=== PATIENT | male | born 1975 | race Caucasian/White ===

== ENCOUNTER 2018-10-22 11:14 | Inpatient (IN) | payer MEDICARE ==
[~2018-10-22] VITALS: Ht 177.8 cm; Wt 72.0 kg
--- NOTE | ~2018-10-22 | OP ---
PATIENT NAME: ALAN ESPINAL MEDICAL RECORD: [id number] :73 LOCATION:D. D.2102 ADMISSION DATE:10/22/18 SURGEON: REGINALDO PORTILLO MD DATE OF OPERATION: 10/23/2018 The patient is an inpatient. PREOPERATIVE DIAGNOSES: End-stage renal disease with dependence on hemodialysis and thrombosis of left arm AV graft. POSTOPERATIVE DIAGNOSES: End-stage renal disease with dependence on hemodialysis and thrombosis of left arm AV graft. REFERRING PHYSICIAN: Dr. Lopez and Dr. Quijano. OPERATION PERFORMED: Insertion of a right internal jugular 19-cm HemoSplit dialysis catheter done with ultrasound as well as fluoroscopic guidance. SURGEON: Reginaldo Portillo MD ANESTHESIA: General with LMA per BLUING OVEN TENDER. PREOPERATIVE NOTE: This unfortunate gentleman has a left arm brachiobasilic AV fistula, which is thrombosed frequently of late and had thrombosed again. He was admitted to the hospital and I was consulted to place a central catheter and as soon as possible plan to do an open revision of the left arm AV graft. I discussed with Dr. Quijano or the potential for a graft revision with an anastomosis more proximally on the axillary vein, which already contains an endovascular stent graft. I discussed with Dr. Lopez also this morning, the need to go ahead and place a catheter. There was not time in the operating schedule today to do a graft revision, but that we would plan to do it soon. DESCRIPTION OF PROCEDURE: Under general anesthesia, the patient was prepped and draped in sterile manner. He was examined with Duplex ultrasound and the right internal jugular vein found to be patent and fully compressible and normal in every sonographic respect and incision was made at the base of the neck and through that with ultrasound guidance, a micropuncture needle and wire were inserted and then a micropuncture catheter, a larger guidewire and then serially larger dilators and finally a dilator peel-away sheath. A 19-cm HemoSplit was then brought through an infraclavicular stab wound and subQ tunnel and inserted through the peel-away sheath as it was removed. The tips of the catheter were positioned in the right atrium. When accessed and aspirated, both lumens returned blood easily. They were then flushed with saline and lastly heparin locked, clamped and capped. The cervical incision was closed with a single interrupted inverted 3-0 Vicryl suture and Dermabond glue and the catheter was sutured to the skin near the entry site with 2-0 Prolene. Additional sterile dressings were applied and the patient then awakened and taken to the recovery room. Blood loss during the operation was perhaps 15 or 20 cc unreplaced. All sponges, instruments and needles were accounted for. No drain used and no surgical specimen submitted for histopathology. PLAN: The patient will have dialysis either tonight or in the morning and then go home and he will be returning very soon, probably next week for his graft OPERATIVE REPORT [id number] ALAN ESPINAL revision surgery. TRANSINT:[id number] Voice Confirmation ID: [id number] DOCUMENT ID: [id number] REGINALDO PORTILLO MD at 1150 CC: RONEL QUIJANO and JOHN LOPEZ MD [id number] DICTATION DATE: 10/23/181940 DOPE HOUSE OPERATOR HELPER: 10/23/182032 DIS IN 10/24/18 [facility] [address] [place] [address]
--- NOTE | ~2018-10-22 | HP ---
PATIENT: ALAN ESPINAL MEDICAL RECORD: [id number] ACCOUNT: [id number] LOCATION:[address] : [birth year] ADMISSION DATE: 10/22/18 PCP: JOHN CARSON MD HISTORY AND PHYSICAL EXAMINATION REASON FOR ADMISSION: 1. Clotted dialysis access. 2. The patient has missed dialysis. HISTORY: This is a 43-year-old male with past medical history of hypertension, congestive heart failure, COPD, diabetes, and end-stage renal disease, on dialysis on Mondays, Wednesdays, and Fridays. He recently has had multiple thrombectomies. Dr. Romero had reviewed his fistulogram films with Dr. Rutledge in regards to possibly placing a left upper brachial axillary AV graft in this 43-year-old gentleman. REVIEW OF SYSTEMS: Related to dialysis. All other review of systems are negative. PAST MEDICAL HISTORY: 1. End-stage renal disease, on dialysis on Mondays, Wednesdays, and Fridays. 2. COPD. 3. Depression. 4. Diabetes, insulin dependent. 5. Chronic headaches. 6. Hypertension. 7. Congestive heart failure. 8. Hyperlipidemia. PAST SURGICAL HISTORY: Lap gregory, appendectomy, multiple vascular access procedures and tunnel catheter placement, and multiple access procedures related to his fistula. ALLERGIES: NKDA. MEDICATIONS: Medication list was reviewed and had Coreg, hydralazine, lisinopril, and Lasix as well as DuoNebs. He had been on Lipitor in the past. SOCIAL HISTORY: He is single. Former smoker. Chews tobacco at this time, but quit smoking in 2014. No illicit drugs. Fair compliance at best with dialysis. FAMILY HISTORY: Father had heart disease. Mother had heart disease and hypertension. PHYSICAL EXAMINATION: VITAL SIGNS: 170/100, 72 heart rate, and 18 respiratory rate. GENERAL: He is alert and oriented times 3. HEENT: Normocephalic. Clotted graft. HEENT is grossly clear. NECK: No thyromegaly. CHEST: Regular rhythm. LUNGS: Decreased breath sounds. ABDOMEN: Nontender in all 4 quadrants with scars as noted. LABORATORY DATA: BMP, CBC, and INR. HISTORY AND PHYSICAL [id number] ALAN ESPINAL ASSESSMENT AND PLAN: 1. End-stage renal disease. 2. Clotted dialysis access, reason for admission. 3. Anemia of CKD. 4. Hyperphosphatemia. 5. Insulin-dependent diabetes, on insulin therapy. 6. Hypertension, on multiple medications. 7. Edema. 8. Congestive heart failure. PLAN: 1. Please see orders. 2. Consult Dr. Rutledge. 3. Lab. 4. Possible catheter placement versus thrombectomy and/or both. TRANSINT:[id number] Voice Confirmation ID: [id number] DOCUMENT ID: [id number] VAZQUEZ COWART MD at 0630 CC: [id number] DICTATION DATE: 10/22/18 1200 VIDEO GAME SCRIPT WRITER: 10/22/18 1253 ADM IN [facility] [address] [place] [id number]
--- NOTE | ~2018-10-22 | MORECARE ---
CASE MANAGEMENT DISCHARGE SUMMARY PATIENT: ALAN ESPINAL UNIT: [id number] ADM DATE: 10/22/18 AGE: 43 : [birth year] SEX: M ROOM/BED: D.2102 AUTHOR: GENE,DOC PHYSICIAN: REFERRING PHYSICIAN: JOHN CARSON MD DATE OF SERVICE: 10/24/18 Discharge Plan Patient Name: ALAN ESPINAL Facility: [facility]:[place] : 1975 Planned Disposition: Home Anticipated Discharge Date: 10/24/18 Discharge Date: 10/24/2018 Expected LOS: 2 Initial Reviewer: [email or web address] Initial Review Date: 10/24/2018 Generated: 10/24/18 5:16 pm Comments DCP- Discharge Planning Updated by [email or web address]: Willian Lazar on 10/24/18 3:[address] Patient Name: ALAN ESPINAL Admission Status: ER Accout number: [id number] Admission Date: 10-22-2018 : 1975 Admission Diagnosis:THROMBOSIS DUE TO VASCULAR PROSTH DEV/GRFT, INIT Attending: JHON CARSON Current LOS: 2 Anticipated DC Date: 10-24-2018 Planned Disposition: Home Primary Insurance: MEDICARE A & B Discharge Planning Comments: CM MET WITH PT AND MOTHER IN ROOM TO DISCUSS DISCHARGE PLANNING AND NEEDS. ALAN ESPINAL provided verbal consent to discuss current and ongoing needs with/in the presence of: MOTHER, JASMIN BRADEN. PT REPORTS LIVING AT HOME INDEPENDENTLY WITH HIS MOTHER. PT HAS GLUCOMETER AND PULSE OXIMETER WITH NO MEDICAL EQUIPMENT PROVIDER PRERFERENCE. PT HAS DIALYSIS IN [facility], HIS MOTHER OR PT DRIVES. PT HAS NO OUTSIDE SERVICES ASSISTING IN THE HOME. CM DISCUSSED AVAILABILITY OF HOME HEALTH, REHAB SERVICES AND MEDICAL EQUIPMENT. PT DENIES DISCHARGE NEEDS, REPORTS HIS MOTHER IS HERE TO WILL PICK HIM UP FOR DISCHARGE HOME. IMPORTANT MESSAGE FROM MEDICARE PROVIDED AND EXPLAINED. Drafter (Cad) Electronic: Willian Lazar DCPIA - Discharge Planning Initial Assessment Updated by [email or web address]: Willian Lazar on 10/24/18 4:07 pm * Is the patient Alert and Oriented? Yes * How many steps to enter\exit or inside your home? * PCP [facility] IN [facility] * [facility] [place] * Preadmission Environment Home with Family * ADLs Independent * Equipment Glucometer Other * Other Equipment PULSE OXIMETER NO MEDICAL EQUIPMENT PROVIDER PREFERENCE * List name and contact numbers for known caregivers / representatives who currently or will assist patient after discharge: JOSUE ZURITA, * Verbal permission to speak to the caregivers and representatives has been obtained from the patient. Yes * Community resources currently utilized Other * Please name any agencies selected above. OUTPATIENT DIALYSIS, MWF, [place] * Additional services required to return to the preadmission environment? No * Can the patient safely return to the preadmission environment? Yes * Has this patient been hospitalized within the prior 30 days at any hospital? Yes Coverage Notice Reviewer: [email or web address] Rama Lazar Notice Issued Date-Time: 10/24/2018 14:10 Notice Type: IM Discharge Notice Notice Delivered To: Patient Relationship to Patient: Port Engineer Name: Delivery Method: HAND - Hand Delivered Leticia Days: Prior Verbal Notification: Recipient Understood Notice: Yes Recipient Signature: Yes Med Rec Note Co-signed by Attending: Coverage Notice Comment: Last DP export: 10/24/18 3:07 Patient Name: ALAN ESPINAL Page [phone] at 1616 All edits/amendments must be made on the electronic document DICTATION DATE: 10/24/181614 RESEARCH AND DEVELOPMENT TECHNICIAN: JORGE LUIS 10/24/18 161 RPT#: [id number] DC DATE:10/24/18 STATUS: DIS IN [facility] [address] [place] [address] END OF REPORT
--- NOTE | ~2018-10-22 | MORECARE ---
CASE MANAGEMENT DISCHARGE SUMMARY PATIENT: ALAN ESPINAL UNIT: [id number] ADM DATE: 10/22/18 AGE: 43 : 73 SEX: M ROOM/BED: D.2102 AUTHOR: [place] PHYSICIAN: REFERRING PHYSICIAN: JOHN CARSON MD DATE OF SERVICE: 10/24/18 Discharge Plan Patient Name: ALAN ESPINAL Facility: [facility]:[place] : 1975 Planned Disposition: Home Anticipated Discharge Date: 10/24/18 Discharge Date: 10/24/2018 Expected LOS: 2 Initial Reviewer: [email or web address] Initial Review Date: 10/24/2018 Generated: 10/24/18 5:07 pm Patient Name: ALAN ESPINAL Page 10340 at 1607 All edits/amendments must be made on the electronic document DICTATION DATE: 10/24/18 1606 WHEEL PRESS CLERK: JORGE LUIS 10/24/18 1606 RPT#: [id number] DC DATE:10/24/18 STATUS: DIS IN [facility] [address] [place] [address] END OF REPORT
[~2018-10-22 11:14] MED LIST: COMPAZINE10 MG PO; CYCLOBENZAPRINE10 MG PO; FAMOTIDINE10 MG; HUMALOG 30100 UNITS/ SQ; LANTUS SOL100 UNIT/1 SC; LIPITOR40 MG PO; LOPRESSOR25 MG; METOPROLOL TART50 MG PO; NEURONTIN 300300 MG PO; NORVASC5 MG PO
[2018-10-22] MEDS ORDERED: REQUIP1 MG PO (11:44)
[2018-10-22] MEDS ORDERED: PLAVIX75 MG PO (11:45)
[2018-10-22] MEDS ORDERED: NORMODYNE / TR300 MG PO (11:45)
[2018-10-22] MEDS ORDERED: BAYER CHEWABLE81 MG PO (11:45)
[2018-10-22] MEDS ORDERED: ZESTRIL40 MG PO (11:45)
[2018-10-22] MEDS ORDERED: RESTORIL7.5 MG PO (11:46)
[2018-10-22 12:03] LABS: BASOPHILS 0.6 % (0-2); EOSINOPHILS 0.3 % (0-7); HEMATOCRIT 38.9 % (42.0-54.0); HEMOGLOBIN 13.1 g/dL (13.5-17.5); IMMATURE GRANULOCYTES 0.6 % (0-5); LYMPHOCYTES 5.4 % (15-50); MCH 29.2 pg (26.0-34.0); MCHC 33.7 g/dL (31.0-37.0); MCV 86.6 fL (80.0-100.0); MEAN PLATELET VOLUME 9.2 fL (7.4-10.4); MONOCYTES 3.5 % (2-11); NEUTROPHILS 89.6 % (40-80); PLATELET COUNT 502 10x3/uL (130-400); RBC 4.49 10x6/uL (4.20-6.10); RDW 15.6 % (11.5-14.5); WBC 13.3 10x3/uL (4.8-10.8)
[2018-10-22 12:18] LABS: ALBUMIN 3.7 g/dL (3.4-5.0); ANION GAP 36.1 mmol/L (8-16); BILIRUBIN - TOTAL 0.52 mg/dL (0.2-1.3); CALCIUM 8.2 mg/dL (8.5-10.1); CREATININE - SERUM 13.3 mg/dL (0.6-1.3); POTASSIUM - SERUM 5.1 mmol/L (3.5-5.1); PROTEIN - SERUM 8.8 g/dL (6.4-8.2)
[2018-10-22] MEDS ORDERED: NOVOLOG (12:58)
[2018-10-22] MEDS ORDERED: BENTYL 20 MG TA20 MG PO (12:59)
[2018-10-22] MEDS ORDERED: RENVELA800 MG PO (12:59)
[2018-10-22] MEDS ORDERED: ATARAX 25 MG TA25 MG PO (13:00)
[2018-10-22] MEDS ORDERED: OMEPRAZOLE20 M1 PO (13:01)
[2018-10-22] MEDS ORDERED: NORCO 7.5/325 T1 TA1 PO (13:02)
[2018-10-22] MEDS ORDERED: LONITEN10 MG PO (13:03)
[2018-10-22] MEDS ORDERED: NOVOLOG SQ (13:05)
[2018-10-22] MEDS ORDERED: NOVOLOG100 UNIT/1 SQ (13:43)
[2018-10-22 14:04] VITALS: BP 239/139; BMI 21.2
[2018-10-22 16:43] VITALS: BP 226/123
[2018-10-22 20:57] VITALS: BP 203/107
[2018-10-23] VITALS (7 sets, daily range): BP systolic 107–160; BP diastolic 47–90; Ht 177.8 cm; Wt 72.0 kg
[2018-10-23 10:21] LABS: ANION GAP 35.3 mmol/L (8-16); CALCIUM 7.2 mg/dL (8.5-10.1); CARBON DIOXIDE 11.7 mmol/L (21.0-32.0); CREATININE - SERUM 14.7 mg/dL (0.6-1.3)
[2018-10-23 10:29] LABS: INR 1.34 (0.85-1.17)
[2018-10-24] VITALS: BP 122/65
[2018-10-24 05:17] VITALS: BP 98/57
[2018-10-24 08:11] VITALS: BP 141/71
== END 2018-10-24 14:37 | disposition home or self-care (01) | DRG 286 ==
LOC: D.ER 11:14 → EDSTATUS 12:17 → D.M2 12:23
PROVIDERS: Family Medicine; Surgery
PROC: B2141ZZ Fluoroscopy of Right Heart using Low Osmolar Contrast (ICD-10-PCS; 2018-10-23)
PROC: 02H633Z Insertion of Infusion Device into Right Atrium, Percutaneous Approach (ICD-10-PCS; 2018-10-23)
PROC: 0JH63XZ Insertion of Tunneled Vascular Access Device into Chest Subcutaneous Tissue and Fascia, Percutaneous Approach (ICD-10-PCS; principal; 2018-10-23 15:30)
DX: T82.868A Thrombosis due to vascular prosthetic devices, implants and grafts, initial encounter (principal); N18.6 End stage renal disease; I13.2 Hypertensive heart and chronic kidney disease with heart failure and with stage 5 chronic kidney disease, or end stage renal disease; Y83.8 Other surgical procedures as the cause of abnormal reaction of the patient, or of later complication, without mention of misadventure at the time of the procedure; E11.22 Type 2 diabetes mellitus with diabetic chronic kidney disease; I50.9 Heart failure, unspecified; Z99.2 Dependence on renal dialysis; Z79.4 Long term (current) use of insulin; J44.9 Chronic obstructive pulmonary disease, unspecified; E78.5 Hyperlipidemia, unspecified; D63.1 Anemia in chronic kidney disease; E83.39 Other disorders of phosphorus metabolism; F32.9 Major depressive disorder, single episode, unspecified; Z87.891 Personal history of nicotine dependence; E87.5 Hyperkalemia

== ENCOUNTER 2018-12-25 05:42 | Day surgery (SDC) | payer MEDICARE ==
[~2018-12-25] VITALS: Ht 177.8 cm; Wt 60.9 kg
[~2018-12-25 05:42] MED LIST changes: +ATARAX 25 MG TA25 MG PO; +BAYER CHEWABLE81 MG PO; +BENTYL 20 MG TA20 MG PO; +LONITEN10 MG PO; +NORCO 7.5/325 T1 TA1 PO; +NORMODYNE / TR300 MG PO; +NOVOLOG; +NOVOLOG SQ; +NOVOLOG100 UNIT/1 SQ; +OMEPRAZOLE20 M1 PO; +PLAVIX75 MG PO; +RENVELA800 MG PO; +REQUIP1 MG PO; +RESTORIL7.5 MG PO; +ZESTRIL40 MG PO
[2018-12-25 06:04] LABS: BASOPHILS 0.5 % (0-2); EOSINOPHILS 2.5 % (0-7); HEMATOCRIT 37.3 % (42.0-54.0); HEMOGLOBIN 12.2 g/dL (13.5-17.5); IMMATURE GRANULOCYTES 0.4 % (0-5); LYMPHOCYTES 16.2 % (15-50); MCH 28.1 pg (26.0-34.0); MCHC 32.7 g/dL (31.0-37.0); MCV 85.9 fL (80.0-100.0); MEAN PLATELET VOLUME 8.6 fL (7.4-10.4); NEUTROPHILS 70.4 % (40-80); RBC 4.34 10x6/uL (4.20-6.10); RDW 15.1 % (11.5-14.5); WBC 7.5 10x3/uL (4.8-10.8)
[2018-12-25 06:13] LABS: APTT 32.6 SECONDS (22.8-39.4); INR 1.23 (0.85-1.17)
[2018-12-25 06:14] LABS: ANION GAP 17.3 mmol/L (8-16); CALCIUM 8.2 mg/dL (8.5-10.1); CARBON DIOXIDE 30.4 mmol/L (21.0-32.0); CREATININE - SERUM 5.9 mg/dL (0.6-1.3); POTASSIUM - SERUM 3.7 mmol/L (3.5-5.1)
[2018-12-25 06:17] LABS: PLATELET COUNT 364 10x3/uL (130-400)
[2018-12-25 07:24] VITALS: Ht 177.8 cm; Wt 60.9 kg
--- NOTE | 2018-12-25 07:47 | NUR ---
0730 PT BECAME VERY DROWSY AND DIAPHORTIC, IV STARTED AND BLOOD SUGAR CHECKED, CBG 29, 50ML OF D50 GIVEN PER ANESTHESIA ORDERS, STAT BLOOD SUGAR DRAWN BY LAB
--- NOTE | 2018-12-25 07:55 | NUR ---
0750 BLOOD SUGAR RECHECKED 200,
--- NOTE | 2018-12-25 08:05 | NUR ---
[address] FOR THORACENTESIS, REPORT CALLED TO HIMA HARRISRN REGUARDING BLOOD SUGAR
--- NOTE | 2018-12-25 09:00 | NUR ---
PT ARRIVED TO [facility] FROM [facility]. DENIES PAIN/NEEDS AT THIS TIME. 2 SIDE RAILS UP. WILL RECHECK FSBS
--- NOTE | 2018-12-25 09:25 | NUR ---
FSBS 70
--- NOTE | 2018-12-25 09:45 | NUR ---
FSBS 65. CALLED DR. SERNA AND HE ORDERED 1/2 AMP D50 IV. ADMINISTERED. WILL RECHECK BS
--- NOTE | 2018-12-25 10:45 | NUR ---
FSBS 92. PT DENIES NEEDS/PAIN AT THIS TIME.
[2018-12-25] MEDS ORDERED: HYDROCODON-ACE1 EAC7 PO (16:21)
--- NOTE | 2018-12-25 18:01 | NUR ---
DC INSTRUCTIONS GIVEN TO PT. STATES UNDERSTANDING. DC'D IV CATH FULLY INTACT.
--- NOTE | 2018-12-25 18:10 | NUR ---
PT LEFT UNIT VIA WC AT 1805
== END 2018-12-25 18:05 | disposition home or self-care (01) ==
LOC: D.OPS 05:42
PROVIDERS: Surgery
DX: T82.868A Thrombosis due to vascular prosthetic devices, implants and grafts, initial encounter (principal); Y83.8 Other surgical procedures as the cause of abnormal reaction of the patient, or of later complication, without mention of misadventure at the time of the procedure; E11.22 Type 2 diabetes mellitus with diabetic chronic kidney disease; I12.0 Hypertensive chronic kidney disease with stage 5 chronic kidney disease or end stage renal disease; N18.6 End stage renal disease; Z99.2 Dependence on renal dialysis; J90 Pleural effusion, not elsewhere classified

== ENCOUNTER → 2019-02-21 14:02 | Outpatient (CLI) | payer MEDICARE ==
[2018-12-25 07:24] VITALS: BMI 19.2
[~2019-02-21 14:02] MED LIST changes: +HYDROCODON-ACE1 EAC7 PO; +LEVEMIR FL100 UNIT/1 SC; +SENSIPAR30 MG PO
== END | disposition home or self-care (01) ==
LOC: D.RAD 14:02
PROVIDERS: ATTEND Thoracic Surgery (Cardiothoracic Vascular Surgery)
DX: J90 Pleural effusion, not elsewhere classified (principal)

== ENCOUNTER 2019-03-19 12:40 | Outpatient (CLI) | payer MEDICARE ==
[~2019-03-19] VITALS: Ht 177.8 cm; Wt 63.2 kg
[~2019-03-19 12:40] MED LIST changes: -LEVEMIR FL100 UNIT/1 SC; -SENSIPAR30 MG PO
[2019-03-19] MEDS ORDERED: LEVEMIR FL100 UNIT/1 SC (13:46)
[2019-03-19] MEDS ORDERED: SENSIPAR30 MG PO (13:47)
[2019-03-19 14:00] VITALS: Ht 177.8 cm; Wt 63.2 kg
[2019-03-19 15:13] LABS: PROTEIN - BODY FLUID 2.8 G/DL
--- NOTE | 2019-03-19 15:31 | NUR ---
DC INSTRUCTIONS GIVEN TO PT/FAMILY. STATE UNDERSTANDING. PT LEFT UNIT AMBULATING AT 1530
[2019-03-19 20:09] LABS: MACROPHAGES BF 42 %; MESOTHELIALS BF 6 %; NEUT - BF 3 %
--- NOTE | 2019-03-20 16:47 | OP ---
PATIENT NAME: ALAN ESPINAL MEDICAL RECORD: [id number] :73 LOCATION:KRIS ADMISSION DATE: SURGEON: UKRT RAPP MD DATE OF OPERATION: 03/19/2019 SURGEON: Kurt Rapp MD LAMINATION OPERATOR: None. ANESTHESIA: Local 5 cc of 1% Xylocaine. PROCEDURE PERFORMED: Right ultrasound-guided thoracentesis. INDICATION: Right pleural effusion. COMPLICATIONS: None. SPECIMENS: Fluid for cell count, chemistry, cytology and culture. PROCEDURE IN DETAIL: With the patient seated upright and the same day surgery center and with a heart rate, blood pressure, and pulse oximetry monitored, the ultrasound imaging of the right chest was performed with a window for aspiration obtained. The right posterior chest was sterilely prepped and draped. A 1% Xylocaine used for local anesthetic. A 2-mm skin incision was made. Catheter was inserted into the pleural cavity without complication. A total of 1.5 cc of fluid was removed without difficulty. The ultrasound revealed complete drainage. There were no apparent complications. The patient was sent for a chest x-ray and discharged after 1 hour. TRANSINT:[id number] Voice Confirmation ID: [id number] DOCUMENT ID: [id number] KURT RAPP MD at 1647 CC: MAMTA LOPEZ MD [id number] DICTATION DATE: 03/20/19 0754 TOP TRIMMER: 03/20/19 0828 DEP CLI 03/19/19 [place] [id number]
== END 2019-03-19 15:30 | disposition home or self-care (01) ==
LOC: D.OPS 12:40
PROVIDERS: ATTEND Thoracic Surgery (Cardiothoracic Vascular Surgery)
DX: J90 Pleural effusion, not elsewhere classified (principal); Z01.812 Encounter for preprocedural laboratory examination

== ENCOUNTER 2019-04-29 11:00 | Inpatient (IN) | payer MEDICARE ==
[2019-04-29] VITALS (8 sets, daily range): BP systolic 132–147; BP diastolic 74–84; BMI 19.1
[~2019-04-29 11:00] MED LIST changes: +LEVEMIR FL100 UNIT/1 SC; +SENSIPAR30 MG PO
--- NOTE | 2019-04-29 19:20 | NUR ---
PT RECEIVED WITH EYES CLOSED AND CHEST RISING. EASILY AWOKEN TO VERBAL STIMULI. NO COMPLAINT OF PAIN. BP >160 RECEIVING CARDENE 15MG/HR. NO S/S OF DISTRESS. WILL CONTINUE TO OBSERVE.
[2019-04-29 19:44] LABS: HEMATOCRIT 45.5 % (42.0-54.0); HEMOGLOBIN 15.1 g/dL (13.5-17.5); MCH 28.2 pg (26.0-34.0); MCHC 33.2 g/dL (31.0-37.0); MCV 84.9 fL (80.0-100.0); MEAN PLATELET VOLUME 10.1 fL (7.4-10.4); RBC 5.36 10x6/uL (4.20-6.10); WBC 9.6 10x3/uL (4.8-10.8)
--- NOTE | 2019-04-29 19:50 | NUR ---
PT RECEIVED TO UNIT AMBULATING WITH STEADY GAIT AT 1915. PT REMOVED OWN CLOTHES AND PUT ON GOWN. PLACED ON MONITOR, VSS. DENIES PAIN. NO NEEDS MADE KNOWN. CALL LIGHT IN REACH. WILL CONTINUE TO OBSERVE.
[2019-04-29 19:53] LABS: APTT 29.2 SECONDS (22.8-39.4); INR 1.23 (0.85-1.17)
[2019-04-29 20:00] LABS: ALBUMIN 2.9 g/dL (3.4-5.0); ANION GAP 16.6 mmol/L (8-16); BILIRUBIN - TOTAL 0.54 mg/dL (0.2-1.3); CALCIUM 7.6 mg/dL (8.5-10.1); CARBON DIOXIDE 28.3 mmol/L (21.0-32.0); CREATININE - SERUM 4.7 mg/dL (0.6-1.3); PROTEIN - SERUM 6.9 g/dL (6.4-8.2)
[2019-04-29 20:04] LABS: POTASSIUM - SERUM 2.9 mmol/L (3.5-5.1)
--- NOTE | 2019-04-29 21:00 | NUR ---
PT WITH POTASSIUM OF 2.9. DR QUIJANO PAGED AND RETURNED CALL. REPORT GIVEN AND RECEIVED ORDERS FOR 20MEQ K-DUR ONE TIME AND RECHECK LEVEL IN AM. POTASSIUM GIVEN AND PT TOLERATED WELL. WILL CONTINUE TO OBSERVE. CALL LIGHT IN REACH.
--- NOTE | 2019-04-29 23:20 | NUR ---
REASSESSMENT COMPLETED, SEE FLOW SHEET. WILL CONTINUE TO OBSERVE.
[2019-04-30] VITALS (23 sets, daily range): BP systolic 123–183; BP diastolic 63–100; BMI 19.1
--- NOTE | 2019-04-30 01:05 | NUR ---
PT RESTING WITH EYES CLOSED AND CHEST RISING. VSS. NO S/S OF DISTRESS. CALL LIGHT IN REACH. WILL CONTINUE TO OBSERVE.
--- NOTE | 2019-04-30 04:04 | NUR ---
PT HAS BEEN CLIPPED CHEST AND ABDOMEN, RIGHT SIDE AND AXILLA, AND BACK. CHG BATH GIVEN. NEW LINENS PROVIDED. IV TO RIGHT FOREARM SALINE LOCKED, WITH 3 ATTEMTS BY 2 NURSES. PT TOLERATED WELL. REASSESSMENT COMPLETED, SEE FLOW SHEET. WILL CONTINUE TO OBSERVE. CALL LIGHT IN REACH.
--- NOTE | 2019-04-30 06:10 | NUR ---
SPOKE WITH DR SERNA ON PHONE FOR CLEARIFICATION ON PREOP MEDICATIONS. GIVE NITRO PASTE TO RIGHT RADIAL ONLY DUE TO LEFT ARM RESERVE FOR DIALYSIS GRAFT AND HOLD PO MEDICATIONS DUE TO BEING ON DIALYSIS.
--- NOTE | 2019-04-30 07:14 | NUR ---
PT OUT TO SURGERY WITH DR SERNA AND SURGERY STAFF.
--- NOTE | 2019-04-30 10:25 | NUR ---
PT ARRIVED IN THE UNIT. PT HOOKED TO ICU MONITORS. PT AWAKE AND ALERT BUT CONFUSED FROM THE ANESTESIA. WILL PROVIDED 1:1 CARE. NSR ON THE MONITORS. RIGHT SUBVAIAN CVL NOTED. SEE IV FLOW SHEET FOR GTTS. PT HTN. PREOP BP WAS 160-200. DR JAMES STATED HE IS OK IF THE PT SBP >140 BUT TO KEEP IT BELOW 160. LEFT ANTERIOR CT NOTED WITH BLOODY DRAINAGE. DR JAMES STATED TO PUT IT ON 20 OF H2O SUCTION. NO AIR LEAK NOTED. LEFT POSTIOR DRESSING C/D/I. RIGHT RADIAL SHEYLA NOTED. RIGHT FA IV NOTED. FC NOTED. PT STATED THAT HE IS ANURIC. LEFT ARM RESERVE FOR FISTULLA. LEFT UPPER ARM FISTULLA NOTED. BRUIT ASCULTAED AND THRILL PALPATED. CALL LIGHT IN REACH. WILL CONT POC.
--- NOTE | 2019-04-30 10:30 | NUR ---
PT C/O BEING NAUSEAED. DR SERNA AT THE PTS BEDSIDE. OK TO GIVE 4MG OF IV ZOFRAN NOW.
--- NOTE | 2019-04-30 10:36 | NUR ---
DR JAMES STATED TO GIVE 2.5 IV LOPRESSOR NOW. HOLD PO MEDS FOR RIGHT NOW AND TO CALL HIM TO REEVALUATE GIVING THE PO MEDS. DC A LINE PER DR JAMES
--- NOTE | 2019-04-30 10:47 | NUR ---
DC IV FLUIDS PER DR JAMES.
--- NOTE | 2019-04-30 10:54 | NUR ---
DR JAMES NOTFIED THAT THE PTS WAS ANURIC. ORDERS TO DC FC.
--- NOTE | 2019-04-30 11:26 | NUR ---
SHEYLA AND KWAME ORTIZ'Luis PER ORDRES.
--- NOTE | 2019-04-30 12:37 | NUR ---
PT TOLERATING ICE CHIPS WELL.
--- NOTE | 2019-04-30 13:42 | NUR ---
PRN MORPHINE GIVEN FOR 10/10 PAIN.
--- NOTE | 2019-04-30 13:50 | NUR ---
PT HAD AN EPISODE OF NAUSEA AND DRY HEAVING. PRN ZOFRAN GIVEN. SEE MAR
--- NOTE | 2019-04-30 14:18 | OP ---
PATIENT NAME: ALAN ESPINAL MEDICAL RECORD: [id number] :73 LOCATION:[address] D.CV02 ADMISSION DATE:04/29/19 SURGEON: KURT JAMES MD DATE OF OPERATION: 04/30/2019 SURGEON: Kurt James MD BOAT AND PLANT UTILITY SUPERVISOR: Michael Clay PROCEDURE PERFORMED: Right thoracoscopy, lysis of intrapleural adhesions, talc pleurodesis, bronchoscopy. PREOPERATIVE DIAGNOSES: Recurrent right pleural effusion and chronic kidney disease. POSTOPERATIVE DIAGNOSES: Recurrent right pleural effusion and chronic kidney disease. ANESTHESIA: General endotracheal anesthesia. SPECIMENS: None. COMPLICATIONS: None. CONDITION: Stable. DISPOSITION: ICU. OPERATIVE FINDINGS: 1. Two liters serous right pleural effusion. 2. Adhesions to the right upper lobe taken down sharply with good reexpansion of the lower and middle lobes. 3. Six grams talc pleurodesis. OPERATIVE INDICATION: Recurrent pleural effusion. DESCRIPTION OF PROCEDURE: The patient was brought to the operating suite. General anesthesia was obtained. The patient was turned in left lateral decubitus position with appropriate padding. The right chest was deflated. The camera was inserted through a 2-cm incision at the tip of the scapula and adhesions to the apex were noted. Fluid was removed. Working through an anterior port site and then working sharply, the adhesions at the upper lobe were taken down. Talc was instilled in the chest and a 24-Bulgarian Clinton drain was placed inferiorly through the anterior working port and sutured in place. The posterior working port was closed. Lung was reinflated. The patient was taken to the ICU with no apparent complications. TRANSINT:[id number] Voice Confirmation ID: [id number] DOCUMENT ID: [id number] OPERATIVE REPORT [id number] ALAN ESPINAL KURT JAMES MD at 1418 CC: MAMTA LOPEZ MD [id number] DICTATION DATE: 04/30/19 1050 GREASE PRESS HELPER: 04/30/19 1242 ADM IN [facility] [address] [place] [id number]
--- NOTE | 2019-04-30 14:27 | NUR ---
DR JAMES IN THE UNIT. CONT TO HOLD PO MEDS PER DR JAMES. PT ASSISTED OOB AND INTO HIS BEDSIDE CHAIR. PT STATES HIS COMFORT LEVEL IS BETTER OOB IN THE CHAIR. PT TOLERATED TRANSFER WELL.
--- NOTE | 2019-04-30 16:20 | NUR ---
PT C/O OF BEING UNCOMFORTABLE. PRIMARY NURSE INDICATED PT COULD NOT GO TO BED YET. ASSISTED PT INTO STANDING POSITION AND ALLOWED TO "STRETCH HIS LEG" PT THEN RETURNED TO CHAIR AND ASSISTED FOR COMFORT. PAIN MEDICATION ALSO ADMINISTERED AT THIS TIME FOR PAIN LEVEL OF "10"
--- NOTE | 2019-04-30 17:18 | NUR ---
SPOKE WITH DR JAMES ABOUT THE PTS FSBS AND NO INSULIN ORDERED. DR JAMES REFERED THE INSULIN TO DR CARSON. DR CARSON PAGED. N.O ORDERS FOR INTER. SS OF HUMALOG AND 10 UNITS OF LEVIMIR NOW.
--- NOTE | 2019-04-30 17:26 | NUR ---
EXPLAINED TO THE PT THE ORDERS THAT DR CARSON HAVE GAVE ME REGARDING HIS INSULIN AND HE SAID "TRUST ME, THAT WILL BOTTOM MY SUGAR OUT." DR CARSON REPAGED. WAITING FOR RESPONSE.
--- NOTE | 2019-04-30 17:32 | NUR ---
SPOKE WITH DR CARSON. OK TO NOT GIVE LEVIMIR NOW. CHANGE HUMLOG FROM INTERMITED TO LOW SLIDING SCALE.
[2019-05-01] VITALS (25 sets, daily range): BP systolic 88–136; BP diastolic 56–91
--- NOTE | 2019-05-01 05:55 | NUR ---
PATIENT CHG BATH GIVEN AND UP TO CHAIR. CT INTACT WITHOUT AIRLEAK WITH SEROUS DRAINAGE NOTED.
--- NOTE | 2019-05-01 06:15 | NUR ---
DR. VÁZQUEZ PAGED FOR PATIENT GOING BACK INTO AFIB WITH RATE SPIRADIC FROM 110-130'S.
[2019-05-01 06:24] LABS: HEMOGLOBIN 14.7 g/dL (13.5-17.5); MCH 28.3 pg (26.0-34.0); MCHC 33.4 g/dL (31.0-37.0); MCV 84.8 fL (80.0-100.0); MEAN PLATELET VOLUME 10.2 fL (7.4-10.4); RBC 5.19 10x6/uL (4.20-6.10); RDW 15.7 % (11.5-14.5)
[2019-05-01 06:31] LABS: WBC 16.1 10x3/uL (4.8-10.8)
--- NOTE | 2019-05-01 06:34 | NUR ---
DR. VÁZQUEZ PAGED SECOND TIME TO NOTIFY OF HR STILL AWAITING RETURN CALL.
[2019-05-01 07:06] LABS: ALBUMIN 2.6 g/dL (3.4-5.0); BILIRUBIN - TOTAL 0.71 mg/dL (0.2-1.3); CALCIUM 7.7 mg/dL (8.5-10.1); CARBON DIOXIDE 22.4 mmol/L (21.0-32.0); POTASSIUM - SERUM 4.4 mmol/L (3.5-5.1); PROTEIN - SERUM 6.5 g/dL (6.4-8.2)
[2019-05-01 07:08] LABS: CREATININE - SERUM 6.6 mg/dL (0.6-1.3)
--- NOTE | 2019-05-01 07:53 | NUR ---
DR JAMES CAME BY AND SAW PATIENT. PLACED CHEST TUBE TO WATER SEAL ORDERED.
--- NOTE | 2019-05-01 09:23 | NUR ---
PT ASKED FOR HIS BAG TO BE BROUGHT OVER TO HIM. BAG WAS OPEN WHEN I WENT TO RETRIEVE IT. ABLE TO SEE MEDICATION BOTTLES. ASKED FOR PERMISSION TO SEARCH BAG AND REMOVE MEDICATIONS. BOTTLES WERE REMOVED AND MEDICATIONS COUNTED WITH PATIENT. BOTTLES PLACED IN INVENTORY BAG AND PHARMACY NOTIFIED OF NEED FOR PROCUREMENT PROFESSIONAL.
--- NOTE | 2019-05-01 14:26 | NUR ---
CALLED DIALYSIS UNIT TO GET ETA ON TREATMENT OF PATIENT. WAS INFORMED BY IVY THAT IT WOULD LIKELY BE 4-5 HOURS BEFORE THERE WILL BE A DIALYSIS NURSE AVAILABLE TO COME TO CVICU TO TREAT PATIENT.
--- NOTE | 2019-05-01 15:52 | NUR ---
CALL MADE TO DR VÁZQUEZ AT REQUEST OF MANJIT FROM FINANCIAL SERVICES REP AFTER HE CAME OVER TO CHECK ON PATIENT. LET DR VÁZQUEZ KNOW THAT PAIN WAS IN A LOT OF PAIN AND HAD BEEN GIVEN NORCO PO. NEW ORDER RECEIVED FOR MORPHINE. TO CHECK H&H AFTER FFP INFUSED. WILL COME TO SEE PATIENT SHORTLY. FEMSTOP TO REMAIN OCCLUSIVE AT THIS TIME.
--- NOTE | 2019-05-01 18:37 | NUR ---
PT ASSISTED UP TO BEDSIDE COMMODE. THINKS NEEDS TO HAVE BOWEL MOVEMENT. STILL WAITING ON DIALYSIS TREATMENT
--- NOTE | 2019-05-01 18:56 | NUR ---
DIALYSIS NURSE AT BEDSIDE SETTING UP FOR TREATMENT
--- NOTE | 2019-05-01 19:05 | NUR ---
DIALYSIS STAFF HERE TO START PATIENT DIALYSIS. PATIENT BACK TO BED FROM CHAIR WITH MINIMAL ASSIST. CALL LIGHT POLOIN LEON.
--- NOTE | 2019-05-01 19:31 | NUR ---
PATIENT IS NAUSEATED. ZOFRAN GIVEN AT 1720 BY DAY SHIFT. WILL CONTINUE TO MONITOR PATIENT.
--- NOTE | 2019-05-01 22:21 | NUR ---
DIALYSIS FINISHED AND 2L WERE TAKEN OFF OF PATIENT. BP 115/72. PATIENT IS C/O OF PAIN AND NAUSEA AT THIS TIME. WILL CONTINUE TO MONITOR AND GIVE PM MEDS ALONG WITH ZOFRAN AND PAIN MED.
--- NOTE | 2019-05-01 23:40 | NUR ---
PATIENT IS SITTING UP IN CHAIR AND REFUSES TO GO TO BED. PATIENT STATES HIS BACK FEELS BETTER UP IN CHIAR. RAISED PATIENTS FEET UP IN RECLINER AND APPLIED SCD'S. BLANKET AND PILLOW PROVIDED. CALL LIGHT WITHIN REACH, BED IN LOW POSITION.
[2019-05-02] VITALS (14 sets, daily range): BP systolic 86–146; BP diastolic 46–86
--- NOTE | 2019-05-02 01:29 | NUR ---
PATIENT BACK TO BED FROM CHAIR WITH MINIMAL ASSIST. CALL LIGHT WITHIN REACH, BED IN LOW POSITION. ICE CHIPS GIVEN. PATIENT DENIES ANY OTHER NEEDS.
--- NOTE | 2019-05-02 05:47 | NUR ---
BLOOD SUGAR WAS 57. PT IS ALERT AND ORIENTED. GIVEN JUICE AND JELLO WILL RECHECK BS.
--- NOTE | 2019-05-02 05:48 | NUR ---
CVL DRESSING CHANGED WITH STERILE TECHNIQUE.
[2019-05-02 06:43] LABS: ALBUMIN 2.4 g/dL (3.4-5.0); ANION GAP 17.8 mmol/L (8-16); BILIRUBIN - TOTAL 0.48 mg/dL (0.2-1.3); CALCIUM 7.9 mg/dL (8.5-10.1); CARBON DIOXIDE 26.4 mmol/L (21.0-32.0); CREATININE - SERUM 5.8 mg/dL (0.6-1.3); POTASSIUM - SERUM 4.2 mmol/L (3.5-5.1); PROTEIN - SERUM 6.5 g/dL (6.4-8.2)
[2019-05-02 06:47] LABS: HEMATOCRIT 40.3 % (42.0-54.0); HEMOGLOBIN 13.6 g/dL (13.5-17.5); MCH 28.2 pg (26.0-34.0); MCHC 33.7 g/dL (31.0-37.0); MCV 83.4 fL (80.0-100.0); MEAN PLATELET VOLUME 10.1 fL (7.4-10.4); RBC 4.83 10x6/uL (4.20-6.10); RDW 15.7 % (11.5-14.5)
[2019-05-02 06:54] LABS: WBC 10.5 10x3/uL (4.8-10.8)
--- NOTE | 2019-05-02 08:18 | NUR ---
UP IN CHAIR EATING BREAKFAST AT THIS TIME. NO ACUTE DISTRESS NOTED. PT ALERT AND ORIENTED. CALL LIGHT AND PERSONAL ITEMS IN REACH. WILL CONTINUE PLAN OF CARE.
--- NOTE | 2019-05-02 10:16 | NUR ---
ASSISTED TO BED AT THIS TIME. NO ACUTE DISTRESS NOTED. WILL CONTINU EPLAN OF CARE.
--- NOTE | 2019-05-02 10:48 | NUR ---
NOTED SINCE NASAL CANNULA HAD BEEN REMOVED (BEFORE CHEST TUBE REMOVAL) OXYGEN SATRUATION HAD BEEN TRENDING MID 80S. DR JAMES NURSE [place] NOTIFIED OF THIS, STATED TO NOTIFY RENAL OF THIS FOR FURTHER ORDERS. RENAL PAGED AND OXYGEN PLACED TO PT AT 2L NC. PT STATED TO NURSE THAT HE HAS IN THE PAST BEEN PLACED ON OXYGEN TEMPORARILY ABOUT 2 YEARS AGO. WILL CONTINUE PLAN OF CARE.
--- NOTE | 2019-05-02 11:03 | NUR ---
PT ESTABLISHED CALL IN CODE "RED."
--- NOTE | 2019-05-02 13:18 | NUR ---
PT TO DISCHARGE HOME TODAY, PER DR RAJENDRA HO NURSE, RENAL NEEDS TO BE CALLED TO MANAGE PTS ANTIHYPERTENSIVE MEDICATIONS. RENAL PAGED AT THIS TIME.
--- NOTE | 2019-05-02 14:20 | NUR ---
HAD NOT RECIEVED CALLBACK FROM RENAL YET TO VERIFY ANTIHYPERTENSIVE MEDICATIONS. PAGED AGAIN USING CALL SERVICE.
--- NOTE | 2019-05-02 14:41 | NUR ---
INCENTIVE SPIROMETER ATTEMPT NOTED AT 1000. PT STATES WILL USE QHR, 10 TIMES. NO ACUTE DISTRESS NOTED. WILL CONTINUE PLAN OF CARE.
--- NOTE | 2019-05-02 14:50 | NUR ---
RECIEVED FROM CHARGE NURSE TO CALL [employer] RENAL PACKAGE REINSPECTOR, TO HER CELL NUMBER, NO ANSWER, VOICEMAIL LEFT.
--- NOTE | 2019-05-02 15:21 | MORECARE ---
CASE MANAGEMENT DISCHARGE SUMMARY PATIENT: ALAN ESPINAL UNIT: [id number] ADM DATE: 04/29/19 AGE: 43 : [birth year] SEX: M ROOM/[facility]ED: [facility] AUTHOR: STANT[place] MILLS PHYSICIAN: REFERRING PHYSICIAN: KATERYNA JAMES MD DATE OF SERVICE: 05/02/19 Discharge Plan Patient Name: ALAN ESPINAL Facility: [facility]:[place] : 1975 Planned Disposition: Home Anticipated Discharge Date: Discharge Date: Expected LOS: Initial Reviewer: [email or web address] Initial Review Date: 05/02/2019 Generated: 05/02/19 4:20 pm External Providers External Provider: Andres Next Contact Date: Service Request Date: Service Type: Resolution: Reviewer: Comments: Patient Name: ALAN ESPINAL Page [phone] at 1521 All edits/amendments must be made on the electronic document DICTATION DATE: 05/02/19 1520 FASHION STYLIST: JORGE LUIS 05/02/19 1520 RPT#: [id number] DC DATE: STATUS: ADM IN [facility] [address] [place] [address] END OF REPORT
--- NOTE | 2019-05-02 15:29 | MORECARE ---
CASE MANAGEMENT DISCHARGE SUMMARY PATIENT: ALAN ESPINAL UNIT: [id number] ADM DATE: 04/29/19 AGE: 43 : 73 SEX: M ROOM/BED: [facility] AUTHOR: STANTON MILLS PHYSICIAN: REFERRING PHYSICIAN: KATERYNA JAMES MD DATE OF SERVICE: 05/02/19 Discharge Plan Patient Name: ALAN ESPINAL Facility: [facility]:[place] : 1975 Planned Disposition: Home Anticipated Discharge Date: Discharge Date: Expected LOS: Initial Reviewer: [email or web address] Initial Review Date: 05/02/2019 Generated: 05/02/19 4:29 pm DCPIA - Discharge Planning Initial Assessment Updated by [email or web address]: Izzy Stark on 05/02/19 3:27 pm * Is the patient Alert and Oriented? Yes * How many steps to enter\exit or inside your home? * PCP SUKHI ASTORGA * Pharmacy [facility] * Preadmission Environment Home with Family * ADLs Independent * Equipment Cane * List name and contact numbers for known caregivers / representatives who currently or will assist patient after discharge: CHINYERE HILLMAN - NIECE - [phone] JASMIN Ontiveros MOTHER- [phone] * Verbal permission to speak to the caregivers and representatives has been obtained from the patient. No * Community resources currently utilized None * Please name any agencies selected above. [facility] * Additional services required to return to the preadmission environment? No * Can the patient safely return to the preadmission environment? Yes * Has this patient been hospitalized within the prior 30 days at any hospital? No Last DP export: 05/02/19 2:20 p Patient Name: ALAN ESPINAL Page [id number] at 1529 All edits/amendments must be made on the electronic document DICTATION DATE: 05/02/19 1529 HEAD BANDER AND LINER OPERATOR: JORGE LUIS 05/02/19 1529 RPT#: [id number] DC DATE: STATUS: ADM IN [facility] [address] [place] [address] END OF REPORT
--- NOTE | 2019-05-02 15:37 | MORECARE ---
CASE MANAGEMENT DISCHARGE SUMMARY PATIENT: ALAN ESPINAL UNIT: [id number] ADM DATE: 04/29/19 AGE: 43 : 73 SEX: M ROOM/BED: D.02 AUTHOR: GENE,DOC PHYSICIAN: REFERRING PHYSICIAN: KATERYNA JAMES MD DATE OF SERVICE: 05/02/19 Discharge Plan Patient Name: ALAN ESPINAL Facility: [facility]:[place] : 1975 Planned Disposition: Home Anticipated Discharge Date: Discharge Date: Expected LOS: Initial Reviewer: [email or web address] Initial Review Date: 05/02/2019 Generated: 05/02/19 4:37 pm Comments DCP- Discharge Planning Updated by [email or web address]: Izzy Stark on 05/02/19 2:[address] Patient Name: ALAN ESPINAL Admission Status: Urgent Accout number: [id number] Admission Date: 04-29-2019 : 1975 Admission Diagnosis:PLEURAL EFFUSION, NOT ELSEWHERE CLASSIFIED Attending: KATERYNA JAMES Current LOS: 3 Anticipated DC Date: Planned Disposition: Home Primary Insurance: MEDICARE A & B Discharge Planning Comments: CM met with patient at bedside after explaining CM role and obtaining verbal consent. Patient lives at home with his mother Alayna and plans to return there upon discharge. Patient feels this would be a safe discharge. Patient is on hemodialysis MWF in [place]. CM discussed availability / needs of home health and medical equipment. CM discussed with patient the need for home 02 and CELESTE signed for [facility]. CM contacted [facility] [phone] spoke with Dahlia and faxed records. [facility] to deliver portable 02 to patients room prior to discharge today. Patient states he will have his family drive him home upon discharge. D/ C IMM explained and served 05/02/19 @ 9945. CM will continue to follow and assist as needed with discharge planning / needs. Finished Cloth Examiner: Izzy Stark DCPIA - Discharge Planning Initial Assessment Updated by [email or web address]: Izzy Stark on 05/02/19 3:27 pm * Is the patient Alert and Oriented? Yes * How many steps to enter\exit or inside your home? * PCP SUKHI ASTORGA * Pharm[facility] * Preadmission Environment Home with Family * ADLs Independent * Equipment Cane * List name and contact numbers for known caregivers / representatives who currently or will assist patient after discharge: CHINYERE LIRA - [phone] ALAYNA HAYNES- [phone] * Verbal permission to speak to the caregivers and representatives has been obtained from the patient. No * Community resources currently utilized None * Please name any agencies selected above. [facility] [place] * Additional services required to return to the preadmission environment? No * Can the patient safely return to the preadmission environment? Yes * Has this patient been hospitalized within the prior 30 days at any hospital? No Coverage Notice Reviewer: [email or web address] Rama Stark Notice Issued Date-Time: 05/02/2019 15:15 Notice Type: IM Discharge Notice Notice Delivered To: Patient Relationship to Patient: Self Planing Machine Operator Name: Delivery Method: HAND - Hand Delivered Leticia Days: Prior Verbal Notification: Recipient Understood Notice: Yes Recipient Signature: Yes Med Rec Note Co-signed by Attending: Coverage Notice Comment: Last DP export: 05/02/19 2:29 p Patient Name: ALAN ESPINAL Page [id number] at 1537 All edits/amendments must be made on the electronic document DICTATION DATE: 05/02/191536 TECHNICAL REPORT WRITER: JORGE LUIS 05/02/197 RPT#: [id number] DC DATE: STATUS: ADM IN [facility] [address] [place] [address] END OF REPORT
--- NOTE | 2019-05-02 15:37 | NUR ---
PER RENAL, DR QUIJANO, AT DISCHARGE HOLD LONITEN AND CONTINUE LABETALOL AND NORVASC UNLESS STATED OTHERWISE BY RENAL.
--- NOTE | 2019-05-02 16:39 | NUR ---
PT DISCHARGED HOME AT THIS TIME VIA PERSONAL VEHICLE. NO ACUTE DISTRESS NOTED. PT LEFT WITH ALL PERSONAL ITEMS, DISCHARGE PAPERWORK, HARD SCRIPTS, PERSONAL MEDICATIONS WHICH HAD BEEN HELD BY PHARMACY DURING STAY. CVL TO RT SUBCLAVIAN HAD BEEN DCD AFTER SUITURES REMOVED, PRESSURE HELD FOR 5 MIN, AND PRESSURE DRESSING APPLIED TO SITE; CATHETER TIP INTACT. ALSO PIV TO RT FOREARM DCD, CATHETER TIP INTACT. PT RECIEVED OXYGEN TO TAKE HOME FROM [facility] ([phone]) [facility] PROVIDER HAS PROVIDED TEACHINGS REGARDING OXYGEN AND [place] (DR DREW NURSE) HAS PROVIDED DISCHARGE TEACHINGS REGARDING POSTOP CARE AND FOLLOWUP APPOINTMENTS. PT DENIES ANY FURTHER QUESTIONS OR CONCERNS. NO FURTHER ACTIONS.
--- NOTE | 2019-05-02 16:43 | NUR ---
ALSO PT REFUSED TO HAVE BLOOD GLUCOSE CHECKED BEFORE DISCHARGE.
--- NOTE | 2019-05-02 20:09 | MORECARE ---
CASE MANAGEMENT DISCHARGE SUMMARY PATIENT: AALN ESPINAL UNIT: [id number] ADM DATE: 04/29/19 AGE: 43 : 73 SEX: M ROOM/BED: D.02 AUTHOR: GENE,DOC PHYSICIAN: REFERRING PHYSICIAN: KATERYNA JAMES MD DATE OF SERVICE: 05/02/19 Discharge Plan Patient Name: ALAN ESPINAL Facility: [facility]:[place] : 1975 Planned Disposition: Home Anticipated Discharge Date: Discharge Date: 05/02/2019 Expected LOS: Initial Reviewer: [email or web address] Initial Review Date: 05/02/2019 Generated: 05/02/19 9:09 pm Comments DCP- Discharge Planning Updated by [email or web address]: Izzy Stark on 05/02/19 2:[address] Patient Name: ALAN ESPINAL Admission Status: Urgent Accout number: [id number] Admission Date: 04-29-2019 : 1975 Admission Diagnosis:PLEURAL EFFUSION, NOT ELSEWHERE CLASSIFIED Attending: KATERYNA JAMES Current LOS: 3 Anticipated DC Date: Planned Disposition: Home Primary Insurance: MEDICARE A & B Discharge Planning Comments: CM met with patient at bedside after explaining CM role and obtaining verbal consent. Patient lives at home with his mother Alayna and plans to return there upon discharge. Patient feels this would be a safe discharge. Patient is on hemodialysis MWF in [place]. CM discussed availability / needs of home health and medical equipment. CM discussed with patient the need for home 02 and CELESTE signed for [facility]. CM contacted [facility] [phone] spoke with Dahlia and faxed records. [facility] to deliver portable 02 to patients room prior to discharge today. Patient states he will have his family drive him home upon discharge. D/ C IMM explained and served 05/02/19 @ 3943. CM will continue to follow and assist as needed with discharge planning / needs. Saddle And Harness Maker: Izzy Stark DCPIA - Discharge Planning Initial Assessment Updated by [email or web address]: Izzy Stark on 05/02/19 3:27 pm * Is the patient Alert and Oriented? Yes * How many steps to enter\exit or inside your home? * PCP SUKHI ASTORGA * Pharmacy [facility], [facility] [place] [facility] [place] * Preadmission Environment Home with Family * ADLs Independent * Equipment Cane * List name and contact numbers for known caregivers / representatives who currently or will assist patient after discharge: CHINYERE LIRA - [phone] ALAYNA HAYNES- [phone] * Verbal permission to speak to the caregivers and representatives has been obtained from the patient. No * Community resources currently utilized None * Please name any agencies selected above. [facility] * Additional services required to return to the preadmission environment? No * Can the patient safely return to the preadmission environment? Yes * Has this patient been hospitalized within the prior 30 days at any hospital? No Coverage Notice Reviewer: [email or web address] Rama Stark Notice Issued Date-Time: 05/02/2019 15:15 Notice Type: IM Discharge Notice Notice Delivered To: Patient Relationship to Patient: Self Tank Truck Milk Receiver Name: Delivery Method: HAND - Hand Delivered Leticia Days: Prior Verbal Notification: Recipient Understood Notice: Yes Recipient Signature: Yes Med Rec Note Co-signed by Attending: Coverage Notice Comment: Last DP export: 05/02/19 2:37 p Patient Name: ALAN ESPINAL Page [phone] at 2008 All edits/amendments must be made on the electronic document DICTATION DATE: 05/02/192008 DIRECTOR OF LABOR RELATIONS: JORGE LUIS 05/02/192008 RPT#: [id number] DC DATE:05/02/19 STATUS: DIS IN [address] [place] [address] END OF REPORT
== END 2019-05-02 16:44 | disposition home or self-care (01) | DRG 163 ==
LOC: D.CVICU 19:00 → D.SDCHOLD 04-30 07:30 → D.CVICU 05-02 16:44
PROVIDERS: ADMIT Thoracic Surgery (Cardiothoracic Vascular Surgery); ATTEND Thoracic Surgery (Cardiothoracic Vascular Surgery)
PROC: 3E0L4GC Introduction of Other Therapeutic Substance into Pleural Cavity, Percutaneous Endoscopic Approach (ICD-10-PCS; principal; 2019-04-30 07:30)
PROC: 0BNC4ZZ Release Right Upper Lung Lobe, Percutaneous Endoscopic Approach (ICD-10-PCS; 2019-04-30 07:30)
DX: J90 Pleural effusion, not elsewhere classified (principal); N18.6 End stage renal disease; I12.0 Hypertensive chronic kidney disease with stage 5 chronic kidney disease or end stage renal disease; E11.22 Type 2 diabetes mellitus with diabetic chronic kidney disease; Z99.2 Dependence on renal dialysis; Z79.4 Long term (current) use of insulin